=== PATIENT | female | born 1930 | race Asian ===

== ENCOUNTER 2018-07-09 12:38 | Outpatient (CLI) | payer MEDICARE, BC | END 2018-07-09 12:39 | disposition critical access hospital (66) | LOC: EMS 12:38 | PROVIDERS: ATTEND Surgery | DX: S09.93XA Unspecified injury of face, initial encounter (principal); R22.0 Localized swelling, mass and lump, head; W19.XXXA Unspecified fall, initial encounter; Y93.G1 Activity, food preparation and clean up; Y92.000 Kitchen of unspecified non-institutional (private) residence as the place of occurrence of the external cause | CPT/HCPCS: A0425; A0429 ==

== ENCOUNTER 2018-07-09 13:02 | Emergency (ER) | payer MEDICARE, BC ==
--- NOTE | 2018-07-09 13:40 | ED Physician Documentation ---
PD HPI Fall - Stated complaint Stated Complaint: GLF - Chief complaint Chief Complaint: Neuro - History obtained from History obtained from: Patient - History of Present Illness Mechanism of injury: Tripped (She says she just lost her footing as her shoe fell off and fell to the ground striking her left face and head. She said she had a little pain in her right hip and left arm but has good range of motion of those. Her daughters were with her and did not notice any loss of consciousness altered mentation or vomiting.) Fall distance: Standing position Where injury occurred: Home Timing - onset: Today Injury(ies) location: Head, Face (right cheek) Associated symptoms: No: LOC, AMS, Nausea / vomiting Worsens with: Palpation Contributing factors: No: Anticoagulated Similar symptoms before: Has not had sx before Recently seen: Not recently seen Review of Systems Constitutional: denies: Fever Ears: reports: Loss of hearing (chronic) Nose: denies: Rhinorrhea / runny nose, Congestion Throat: denies: Sore throat Respiratory: denies: Cough GI: denies: Vomiting, Diarrhea Skin: reports: Abrasion (s). denies: Laceration (s) Musculoskeletal: denies: Neck pain, Back pain Neurologic: denies: Focal weakness, Numbness PD PAST MEDICAL HISTORY - Past Medical History Cardiovascular: Hypertension Respiratory: None Endocrine/Autoimmune: None - Past Surgical History Past Surgical History: No - Present Medications Home Medications: Ambulatory Orders Medication Instructions Recorded Confirmed Aspirin [Aspir-Low] 1 tab PO DAILY 11/13/15 12/02/15 Metoprolol Succinate 1 tab PO BID 11/13/15 12/02/15 - Allergies Allergies/Adverse Reactions: Allergies Allergy/AdvReac Type Severity Reaction Status Date / Time No Known Drug Allergies Allergy Verified 07/09/18 13:39 - Social History Does the pt smoke?: No Smoking Status: Never smoker ETOH Use: Wine Does the pt have substance abuse?: No PD ED PE NORMAL - Vitals Vital signs reviewed: Yes - General General: Alert and oriented X 3, No acute distress, Well developed/nourished - HEENT HEENT: Pharynx benign, Dentition benign, Other (She has obvious swelling over the left cheek. She has good extraocular motions without any lag or diplopia. She has sensation present over the upper left lip and gumline. There is enough tenderness and swelling over the left zygoma that is hard to palpate the bone contour. There is an abrasion over the cheek but no laceration.) - Neck Neck: Supple, no meningeal sign, No bony TTP, No adenopathy - Cardiac Cardiac: RRR, No murmur - Respiratory Respiratory: Clear bilaterally, Other (No chest wall tenderness) - Abdomen Abdomen: Soft, Non tender - Derm Derm: Normal color, Warm and dry - Extremities Extremities: No deformity, Normal ROM s pain, Other (There is some mild tenderness over the left mid forearm. 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 There is little tenderness at the lateral right gluteal area but good range of motion of the hip joint.) - Neuro Neuro: Alert and oriented X 3, medical records manager 2-12 intact, No motor deficit, No sensory deficit Eye Opening: Spontaneous Motor: Obeys Commands Verbal: Oriented GCS Score: 15 Results - Vitals Vitals: Vital Signs - 24 hr 07/09/18 07/09/18 07/09/18 13:04 15:15 16:11 Temperature 37.2 C Heart Rate 86 91 95 Respiratory 15 25 H 19 Rate Blood Pressure 185/111 H 170/113 H 163/101 H O2 Saturation 100 98 07/09/18 18:24 Temperature 37.3 C Heart Rate 92 Respiratory 20 Rate Blood Pressure 173/108 H O2 Saturation 98 Oxygen O2 Source Room air - Labs Labs: Laboratory Tests 07/09/18 07/09/18 14:05 14:05 WBC 10.9 H RBC 3.54 L Hgb 11.5 L Hct 35.4 L MCV 100.0 H MCH 32.5 H MCHC 32.5 RDW 21.8 H Plt Count 285 MPV 8.0 Neut # (Auto) 9.2 H Lymph # (Auto) 1.0 L Winston # (Auto) 0.4 Eos # (Auto) 0.2 Baso # (Auto) 0.1 Absolute Nucleated RBC 0.02 Nucleated RBC % 0.2 Manual Slide Review Indicated WBC Morphology NORMAL APPEARANCE Platelet Estimate NORMAL (130-450,000) Platelet Morphology 1+ LARGE PLATELETS RBC Morph Micro Appear TARGET CELLS Sodium 132 L Potassium 3.2 L Chloride 96 L Carbon Dioxide 25 Anion Gap 11.0 BUN 19 Creatinine 0.9 Estimated GFR (MDRD) 59 L Glucose 104 H Calcium 8.5 Magnesium 2.0 Total Bilirubin 1.0 AST 20 ALT 14 Alkaline Phosphatase 52 Total Protein 6.7 Albumin 4.0 Globulin 2.7 Albumin/Globulin Ratio 1.5 Lipase 37 - Rads (name of study) fACIAL CT Radiology: Prelim report reviewed (There is a slightly depressed zygoma fracture. There is swelling of the face. There is fracture of the medial maxillary sinus wall. Orbit lateral wall buckle fracture.), See rad report head CT Radiology: Prelim report reviewed, Discussed with rads (There is a very small subdural at the left parietal frontal area measuring 6 mm in depth. No edema. No skull fracture.), See rad report repeat head CT at 4 hours Radiology: Prelim report reviewed (similar, slightly decreased size of bleeding. ), See rad report PD MEDICAL DECISION MAKING - ED course Complexity details: reviewed results (Facial fractures should be able to be followed up outpatient and we can refer to Dr. Hernandez. The head CT small subdural will need a consultation by neurosurgery. Likely they want a repeat imaging over several hours. She remains awake and alert and conversant with a normal neuro exam.), considered differential, d/w patient, d/w aerodynamic consultant (Neurosurgery at [facility], who suggested repeat CT at 3-4 hours and discharge home if unchanged.) Departure - Departure Disposition: 01 Home, Self Care Clinical Impression: Subdural hematoma Accidental fall Qualifiers: Encounter type: initial encounter Qualified Code(s): W19.XXXA - Unspecified fall, initial encounter Facial fracture due to fall Qualifiers: Encounter type: initial encounter Fracture type: closed Qualified Code(s): S02.92XA - Unspecified fracture of facial bones, initial encounter for closed fracture Condition: Stable Record reviewed to determine appropriate education?: Yes Instructions: ED Fx Face Follow-Up: Gustavo Hernandez DDS [Provider Admit Priv/Credential] - Comments: Sleep with your head elevated slightly to help reduce swelling. Ice or cool towels to the facial swelling periodically over the next couple days to reduce swelling. You could use some saline nasal spray into the nostril to help clear the blood from the sinuses. You will be having some blood when you blow your nose gently. Follow-up with Dr. Renee regarding the facial fractures. Call tomorrow for follow-up appointment likely will be next week after time for the swelling to go down. Tylenol or ibuprofen if needed for pains. The small area of bleeding in the brain as not any bigger and seems slightly smaller. This should not need any further follow-up. He will likely have some headache for several days. Discharge Date/Time: 07/09/18 18:42
[2018-07-09 14:14] LABS: BASOPHILS # (AUTO) 0.1 10^3/uL (0.0-0.1); EOSINOPHILS # (AUTO) 0.2 10^3/uL (0.0-0.7); EOSINOPHILS % (AUTO) 2.1 %; HGB - HEMOGLOBIN 11.5 g/dL (12.0-16.0); LYMPHOCYTES % (AUTO) 8.9 %; MEAN CORPUSCULAR HEMOGLOBIN 32.5 pg (27.0-31.0); MEAN CORPUSCULAR HGB CONC 32.5 g/dL (32.0-36.0); MONOCYTES # (AUTO) 0.4 10^3/uL (0.0-1.0); MONOCYTES % (AUTO) 3.6 %; NEUTROPHILS # (AUTO) 9.2 10^3/uL (1.5-6.6); NEUTROPHILS % (AUTO) 84.4 %; PLT - PLATELET COUNT 285 10^3/uL (130-450); RED BLOOD COUNT 3.54 10^6/uL (4.20-5.40); RED CELL DISTRIBUTION WIDTH 21.8 % (12.0-15.0); WHITE BLOOD COUNT 10.9 x10^3/uL (4.8-10.8)
[2018-07-09 14:24] LABS: ALBUMIN/GLOBULIN RATIO 1.5 (1.0-2.2); CALCIUM 8.5 mg/dL (8.5-10.3); CREATININE 0.9 mg/dL (0.4-1.0); TOTAL PROTEIN 6.7 g/dL (6.7-8.2)
[2018-07-09 14:37] LABS: PLATELET ESTIMATE, MANUAL NORMAL (130-450,000) (NORMAL); PLATELET MORPHOLOGY 1+ LARGE PLATELETS (NORMAL)
--- NOTE | 2018-07-09 15:20 | CT Report ---
Reason: accidental fall, struck left face/head Procedure Date: 07/09/2018 Accession Number: [id number] / [id number] Procedure: CT - HEAD WO CPT Code: FULL RESULT: EXAM: CT HEAD EXAM DATE: 07/09/2018 02:21 PM. CLINICAL HISTORY: 87-year-old female. Accidental fall, struck left face/head. COMPARISON: CT maxillofacial obtained concurrently TECHNIQUE: Multiaxial CT images were obtained from the foramen magnum to the vertex. Reformats: Sagittal and coronal. IV contrast: None. In accordance with CT protocol optimization, one or more of the following dose reduction techniques were utilized for this exam: automated exposure control, adjustment of mA and/or KV based on patient size, or use of iterative reconstructive technique. FINDINGS: Parenchyma: No intraparenchymal hemorrhage. No evidence of mass, midline shift, or CT findings of acute infarction. Mercado-white differentiation is distinct. Diffuse chronic microangiopathic white matter changes are evident. Extraaxial Spaces: Acute lateral left frontal extra-axial, likely subdural, hemorrhage measuring 6 mm in maximal thickness (series 2 image 25) Ventricles: The ventricles and cortical sulci are enlarged, consistent with age-related tissue loss. Sinuses and orbits: Please see the separately dictated CT maxillofacial performed concurrently regarding facial fractures. The left maxillary sinus is blood filled. There is a minimally displaced fracture involving the lateral wall of the left maxillary sinus. Comminuted fracture of the left zygomatic arch. The remaining paranasal sinuses are clear. The mastoid air cells are clear Bones: No evidence of fracture or calvarial defect. Other: Moderate atherosclerosis intracranial arteries. IMPRESSION: 1. Acute lateral left frontal extra-axial, likely subdural, hemorrhage measuring 6 mm in maximal thickness (series 2 image 25) 2. Please see the separately dictated CT maxillofacial performed concurrently regarding facial fractures. The left maxillary sinus is blood filled. There is a minimally displaced fracture involving the lateral wall of the left maxillary sinus. 3. Comminuted fracture of the left zygomatic arch. RADIA The critical result notification system was initiated by Dr. Eric Patton at 03:16 PM on 07/09/2018. ADDENDUM: 07/09/18 15:20 Large soft tissue hematoma along the lateral left face/cheek. The above critical result findings were discussed with Frederick Benitez by Dr. Eric Patton at 03:20 PM on 07/09/2018.
--- NOTE | 2018-07-09 15:32 | CT Report ---
Reason: accidental fall and struck left face/head Procedure Date: 07/09/2018 Accession Number: [id number] / [id number] Procedure: CT - MAXILLOFACIAL WO CPT Code: FULL RESULT: EXAM: CT MAXILLOFACIAL WITHOUT CONTRAST. EXAM DATE: 07/09/2018 02:21 PM. CLINICAL HISTORY: Accidental fall and struck left face/head. COMPARISONS: None. TECHNIQUE: Thin-section axial images were acquired of the face without contrast. Post-processing: Coronal and sagittal reformats. Other: None. In accordance with CT protocol optimization, one or more of the following dose reduction techniques were utilized for this exam: automated exposure control, adjustment of mA and/or KV based on patient size, or use of iterative reconstructive technique. FINDINGS: Soft Tissue: There is soft tissue swelling/hematoma of the left face overlying the zygomatic arch and left cheek. Orbits: No soft tissue abnormalities of the intraorbital contents. Bones: Multiple left facial fractures: 1. Displaced fracture of the mid left zygomatic arch. 2. Buckle fracture of the lateral orbital wall. 3. Fracture of the inferior orbital wall around the course of the infraorbital nerve; with extension of buckle type fractures of the lateral anterior and superior maxillary sinus yoon. Temporomandibular Joints: The patient is edentulous. In the relaxed position, the temporal mandibular joints are in open mouth position but are symmetric. No evidence of TMJ fracture. Sinuses: Subtotal opacification with air-fluid level of the left maxillary sinus consistent with products of hemorrhage. Remaining paranasal sinuses are clear. Other: None. IMPRESSION: Acute left facial fractures as described involving the zygomatic arch, inferior and lateral orbital yoon and left maxillary sinus. RADIA
--- NOTE | 2018-07-09 18:05 | CT Report ---
Reason: repeat scan, recheck subdural Procedure Date: 07/09/2018 Accession Number: [id number] / [id number] Procedure: CT - HEAD WO CPT Code: FULL RESULT: EXAM: CT HEAD WITHOUT CONTRAST EXAM DATE: 07/09/2018 05:42 PM. CLINICAL HISTORY: Repeat scan, recheck subdural. COMPARISON: FACIAL BONES W/O 07/09/2018 2:12 PM. HEAD W/O 07/09/2018 2:12 PM. TECHNIQUE: Multiaxial CT images were obtained from the foramen magnum to the vertex. Reformats: Sagittal and coronal. IV contrast: None. In accordance with CT protocol optimization, one or more of the following dose reduction techniques were utilized for this exam: automated exposure control, adjustment of mA and/or KV based on patient size, or use of iterative reconstructive technique. FINDINGS: Parenchyma: Generalized age appropriate moderate cerebral and cerebellar atrophy. No intraparenchymal hemorrhage. No evidence of mass, midline shift, or CT findings of acute infarction. Mercado-white differentiation is distinct. Diffuse moderate chronic microangiopathic white matter changes are evident. Extraaxial Spaces: Small lateral frontal extra-axial hematoma on scan 3-25, 4 mm in transverse diameter, decreased from 6 mm previously. No additional areas of hemorrhage. Extra-axial spaces otherwise normal. Ventricles: The ventricles and cortical sulci are mildly enlarged, consistent with age-related tissue loss. Sinuses and orbits: Fluid-filled left maxillary sinus, increased since prior exam. Nondisplaced fracture lateral aspect left maxillary sinus with small amount of air within the region, decreased in prominence from prior exam. Comminuted fracture left zygomatic arch again noted, stable. Remaining paranasal sinuses are clear. Bones: Fractures as discussed above. No additional fractures. Other: None. IMPRESSION: Small left frontal lateral extra-axial hematoma, slightly decreased in size from earlier study of today. Increased amount of blood within the left maxillary sinus compared with earlier study. Associated fractures as described previously. No new abnormalities. RADIA
[2018-07-09] MEDS ORDERED: ACETAMINOPHEN 325 MG TABLET PO STA (18:11)
[2018-07-09] MEDS ORDERED: NAPROXEN 250 MG TABLET PO STA (18:11)
[2018-07-09 18:42] VITALS: BP 173/108
== END 2018-07-09 18:42 | disposition home or self-care (01) ==
LOC: EDUNIT# → ED 13:02
DX: S06.5X0A Traumatic subdural hemorrhage without loss of consciousness, initial encounter (principal); S02.40FA Zygomatic fracture, left side, initial encounter for closed fracture; S02.80XA Fracture of other specified skull and facial bones, unspecified side, initial encounter for closed fracture; S02.401A Maxillary fracture, unspecified side, initial encounter for closed fracture; W01.190A Fall on same level from slipping, tripping and stumbling with subsequent striking against furniture, initial encounter; Y93.01 Activity, walking, marching and hiking; Y92.009 Unspecified place in unspecified non-institutional (private) residence as the place of occurrence of the external cause; I10 Essential (primary) hypertension
CPT/HCPCS: 36415; 70450; 70486; 80053; 83690; 83735; 85025; 99283; 99284; A9270

== ENCOUNTER 2018-07-18 12:07 | Day surgery (SDC) | payer MEDICARE, BC ==
[2018-07-18] MEDS ORDERED: ROCURONIUM 50 MG/5 ML VIAL IVP ONE (12:08)
[2018-07-18] MEDS ORDERED: ePHEDrine 50 MG/ML VIAL IVP ONE (12:08)
[2018-07-18] MEDS ORDERED: MIDAZOLAM 2 MG/2 ML VIAL IVP ONE (12:08)
[2018-07-18] MEDS ORDERED: DEXAMETHASONE 4 MG/ML VIAL IVP ONE (12:08)
[2018-07-18] MEDS ORDERED: LIDOCAINE-MPF 2% 5 ML VIAL IM ONE (12:08)
[2018-07-18] MEDS ORDERED: METOPROLOL 5 MG/5 ML VIAL IVP ONE (12:08)
[2018-07-18] MEDS ORDERED: ACETAMINOPHEN 1,000 MG/100 ML 100 ML IV ONE (12:08)
[2018-07-18] MEDS ORDERED: PROPOFOL 200 MG/20 ML VIAL IVP ONE (12:08)
[2018-07-18] MEDS ORDERED: ONDANSETRON 4 MG/2 ML VIAL IVP ONE (12:08)
[2018-07-18] MEDS ORDERED: fentaNYL 100 MCG/2 ML VIAL IVP ONE (12:08)
--- NOTE | 2018-07-18 12:26 | ANESTHESIA ---
Pre-Anesthesia VS, & Labs - Diagnosis Left open Malar fracture, left open Zygomatic fracture - Procedure Open treatment of complicated fractures of malar area including zygomatic arch and malar tripod with graft, Left Vital Signs: 149/86, 97%, HR 80, T 37 Height 5 ft Body Mass Index 17.6 - NPO >8 hours - Is Patient ?: No - Lab Results Fish Bones: 07/18/18 12:48 07/18/18 12:48 Home Medications and Allergies Home Medications: Ambulatory Orders Multivitamin [Daily Multiple Vitamin] 1 each PO DAILY 07/17/18 Aspirin [Aspir-Low] 1 tab PO DAILY 11/13/15 Metoprolol Succinate 1 tab PO BID 11/13/15 Multivitamin [Daily Multiple Vitamin] 1 each PO DAILY 07/17/18 Allergies/Adverse Reactions: Allergies Allergy/AdvReac Type Severity Reaction Status Date / Time No Known Drug Allergies Allergy Verified 07/09/18 13:39 Anes History & Medical History - Anesthetic History Anesthesia Complications: reports: No previous complications - Medical History Cardiovascular: reports: Hypertension Pulmonary: reports: Shortness of breath Gastrointestinal: reports: None Urinary: reports: Incontinence Neuro: reports: Head injury (facial fractures), Other (hard of hearing) Musculoskeletal: reports: Osteoarthritis, Other Endocrine/Autoimmune: reports: None Skin: reports: None Smoking Status: Never smoker - Surgical History General: Colonoscopy Eyes Ears Nose Throat (EENT): Cataracts Gynecologic: Hysterectomy Exam General: Alert Dental: Dentures full Upper, Dentures full Lower Mouth Opening: Greater than 4 Fingerbreadths Mallampati classification: II Thyromental Distance: greater than 6 cm Respiratory: Lungs clear Cardiovascular: Regular rate, Normal S1, Normal S2 Plan Anesthesia Type: General Consent for Procedure(s) Verified and Reviewed: Yes Code Status: Attempt Resuscitation ASA classification: 2-Mild systemic disease Is this case an emergency?: No
[2018-07-18] MEDS ORDERED: LACTATED RINGERS 1,000 ML IV ONE ×2 (12:35→16:07)
[2018-07-18 12:59] LABS: BASOPHILS % (AUTO) 0.4 %; EOSINOPHILS # (AUTO) 0.1 10^3/uL (0.0-0.7); EOSINOPHILS % (AUTO) 1.6 %; LYMPHOCYTES # (AUTO) 1.5 10^3/uL (1.5-3.5); LYMPHOCYTES % (AUTO) 17.7 %; MEAN CORPUSCULAR HEMOGLOBIN 32.8 pg (27.0-31.0); MEAN CORPUSCULAR VOLUME 99.4 fL (81.0-99.0); MEAN PLATELET VOLUME 8.2 fL (7.9-10.8); MONOCYTES # (AUTO) 0.6 10^3/uL (0.0-1.0); MONOCYTES % (AUTO) 6.9 %; NEUTROPHILS # (AUTO) 6.3 10^3/uL (1.5-6.6); NEUTROPHILS % (AUTO) 73.4 %; PLT - PLATELET COUNT 430 10^3/uL (130-450); RED BLOOD COUNT 3.34 10^6/uL (4.20-5.40); WHITE BLOOD COUNT 8.5 x10^3/uL (4.8-10.8)
[2018-07-18] MEDS ORDERED: OXYMETAZOLINE HCL 100 SPRAYS BOTTLE NAS ONE (12:59)
[2018-07-18] MEDS ORDERED: CHLORHEXIDINE GLUCONATE 15 ML UDC PO ONE ×2 (12:59→14:17)
[2018-07-18] MEDS ORDERED: ceFAZolin 2 GM in SODIUM CHLORIDE 0.9% 100ML 100 ML IV SCH (13:00)
[2018-07-18 13:05] LABS: CALCIUM 8.8 mg/dL (8.5-10.3); CREATININE 0.7 mg/dL (0.4-1.0)
--- NOTE | 2018-07-18 13:28 | XRAY Report ---
Reason: preop order Procedure Date: 07/18/2018 Accession Number: [id number] / [id number] Procedure: XR - Chest 1 View X-Ray CPT Code: 79628 FULL RESULT: EXAM: CHEST RADIOGRAPHY EXAM DATE: 07/18/2018 12:45 PM. CLINICAL HISTORY: Preoperative evaluation. COMPARISON: CHEST 2 VIEW PA/LAT 12/02/2015 2:42 PM. TECHNIQUE: 1 view. FINDINGS: The heart is mildly enlarged, which is not significantly changed from the prior exam. Calcified plaques in the thoracic aorta. No consolidation, pleural effusion, or pneumothorax visualized. The bones are osteopenic. Biphasic scoliosis of the thoracic spine. Moderate to severe degenerative changes of the glenohumeral joints bilaterally. IMPRESSION: Mild cardiomegaly, which is similar to the prior exam from 2016. No acute cardiopulmonary findings. RADIA
[2018-07-18] MEDS ORDERED: LIDOCAINE 2%-EPI 1:100000 20 ML MDV MC ONE (14:00)
[2018-07-18] MEDS ORDERED: LIDOCAINE 2%-EPI 1:100000 20 ML MDV SUBQ ONE ×3 (14:18)
[2018-07-18] MEDS ORDERED: OXYMETAZOLINE NASAL SPRAY NAS ONE (14:19)
[2018-07-18] MEDS ORDERED: HYDROcod/ACETAM 5/325 MG TABLET PO PRN (15:22)
[2018-07-18] MEDS ORDERED: ONDANSETRON 4 MG/2 ML VIAL IVP PRN (15:22)
[2018-07-18 16:49] VITALS: BP 157/89
--- NOTE | 2018-07-18 17:48 | OPERATIVE REPORT ---
DATE OF SERVICE: 07/18/2018 Physician: Gustavo Hernandez DDS PREOPERATIVE DIAGNOSIS: Comminuted left zygomaticomaxillary complex fracture. POSTOPERATIVE DIAGNOSIS: Comminuted left zygomaticomaxillary complex fracture. PROCEDURE PERFORMED: Open reduction and internal fixation of the left zygomaticomaxillary complex via intraoral and extraoral approaches. PRIMARY SURGEON: Gustavo Hernandez DDS ANESTHESIOLOGIST: Melia Burns CRNA ANESTHESIA TYPE: General anesthesia via oral endotracheal intubation. LOCATION OF PROCEDURE: [facility] operating room. COMPLICATIONS: None. DRAINS/PACKS/CATHETERS: None. IMPLANTS: All [employer]omet implants were used. Left lateral orbital rim: 4-hole plate with a gap was placed, as well as 4 bone screws. Left intraoral incision, in the buttress area a long multiple hole plate was placed with 5 bone screws. ESTIMATED BLOOD LOSS: Less than 10 mL INTRAVENOUS FLUIDS GIVEN: Per anesthesia records. INDICATIONS FOR PROCEDURE: Patient is an 87-year-old female who stumbled in her house about a week ago, fell and struck the left side of her face. She sustained a complex fracture of the left ZMC, as well as a small subdural hematoma. She was monitored for a week and had no signs of headache, seizures or any other sequela of the subdural hematoma. She was also evaluated clinically and found to have a moderately displaced, rolled in ZMC fracture. It was decided that repair of this fracture was necessary. 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 We had to write most everything down for her to understand. It was a prolonged consultation, but we did thoroughly discuss all the risks, benefits and alternatives, including pain, swelling, bleeding, infection, poor cosmesis scarring, need for further surgery, vision changes, vision loss, change in her occlusion, loss of teeth, inability to wear a denture. Adequate time was given to answer all questions and informed consent was obtained. DESCRIPTION OF PROCEDURE: Patient was brought to the main operating room and placed in a supine position on the operating table. General anesthesia was induced by the anesthesia team, and the airway was secured with an oral endotracheal tube, taped off to the right side of the mouth. The pressure points were padded and checked. A corneal shield was placed in the left eye. Patient was prepped and draped in the standard sterile fashion for an intraoral and extraoral surgical procedure. A formal timeout was executed. Local anesthesia was achieved with 2% lidocaine with 1:100,000 epinephrine x6 mL. Attention was directed intraorally. A throat pack was placed. The mouth was rinsed with chlorhexidine. Attention was directed to the left brow and lateral rim. A 1 cm incision was made with a #15 blade and then electrocautery was used to incise down to bone. The fracture was easily identified. Hemostasis was achieved with electrocautery. Attention was directed intraorally. Stensen's duct was identified, retracted and protected on the left. An incision was made from the first molar to the midline on the left maxilla in the vestibule, leaving a cuff of soft tissue for closure. The incision was carried down to bone and it was made with electrocautery. Hemostasis was achieved with electrocautery. Subperiosteal dissection was performed with a #9. The fracture was easily identified. The zygomatic buttress was exposed, but all the bone in between the zygomatic buttress and the alveolar bone was very, very poor quality and extremely thin. The only placed with stable bone was the piriform area, and this was exposed and anticipated to be used for stabilization of the fracture once it was reduced. A urethral sound was introduced deep to the fracture and lifted outwards and slightly up. The fracture reduced very nicely. It could seemed to be well reduced in the lateral brow area, as well as intraorally. The urethral sound was delicately slid anteroposteriorly along the zygomatic arch to confirm by palpation of this area that the zygomatic arch was reduced. The fracture held in place very nicely, and attention was directed back to the lateral brow. A 4-hole plate with 4 bone screws was used to stabilize the left lateral brow fracture. Attention was directed back into the mouth. A very long plate was used to span the gap of inadequate bone, and plate with 3 screws on the zygomatic buttress and 2 screws in the piriform area. All 5 of these screws were secure, and the fracture was held out nicely. A area to plate of was sought, but was not found. Initially, we wanted to plate more posterior down on the buttress, but there unfortunately was no area where a plate could be placed without involving the alveolar bone. Another area was sought at the inferior orbital rim, but on further review of the CT scan this area was not adequately fractured to justify an incision and plating. Thus, it was decided to finish this case with these 2 plates. Both surgical areas were irrigated copiously. The lateral brow incision was closed with 4-0 Vicryl sutures for the deep and with 5-0 Prolene superficial sutures. The intraoral incision was closed with 4- 0 chromic gut suture. The mouth was rinsed free of debris. The oropharynx was suctioned. The throat pack was removed. Care of patient was returned to the anesthesia team. Patient was emerged uneventfully from anesthesia. She was extubated and transferred to the PACU in stable condition. TD: 07/18/2018 16:00 YVETTE
== END 2018-07-18 12:08 | disposition home or self-care (01) ==
LOC: SDS 12:07
PROVIDERS: ATTEND Dentist Oral and Maxillofacial Surgery
PROC: 0NSR04Z Reposition Maxilla with Internal Fixation Device, Open Approach (ICD-10-PCS; 2018-07-18)
PROC: 0NSQ04Z Reposition Left Orbit with Internal Fixation Device, Open Approach (ICD-10-PCS; 2018-07-18)
PROC: 0NSN04Z Reposition Left Zygomatic Bone with Internal Fixation Device, Open Approach (ICD-10-PCS; principal; 2018-07-18 13:30)
DX: S02.40FB Zygomatic fracture, left side, initial encounter for open fracture (principal); S02.40B Malar fracture, left side; S06.5X0A Traumatic subdural hemorrhage without loss of consciousness, initial encounter; W01.190A Fall on same level from slipping, tripping and stumbling with subsequent striking against furniture, initial encounter; I10 Essential (primary) hypertension; M25.551 Pain in right hip
CPT/HCPCS: 21365; 36415; 71045; 80048; 85025; 93005; A9270; J0131; J7120

== ENCOUNTER 2019-04-25 12:41 | Outpatient (CLI) | payer MEDICARE, BC | END 2019-04-25 12:42 | disposition critical access hospital (66) | LOC: EMS 12:41 | PROVIDERS: ATTEND Surgery | DX: R42 Dizziness and giddiness (principal); M79.602 Pain in left arm; W18.39XA Other fall on same level, initial encounter; Y92.030 Kitchen in apartment as the place of occurrence of the external cause | CPT/HCPCS: A0425; A0427 ==

== ENCOUNTER 2019-04-25 13:02 | Emergency (ER) | payer MEDICARE, BC ==
[2019-04-25] MEDS ORDERED: ACETAMINOPHEN 325 MG TABLET PO STA (13:14)
--- NOTE | 2019-04-25 13:19 | ED Physician Documentation ---
PD HPI FOCAL NEURO - Stated complaint Stated Complaint: FALL - Chief complaint Chief Complaint: Neuro - History obtained from History obtained from: Patient, Family, EMS - History of Present Illness Timing - onset: Today (This is a chapo 88-year-old [place] woman with history of hypertension and frequent falls. Most of the history is from the patient but somewhat limited because she is incredibly hard of hearing so I have to write notes to her which she responds to an normal overall verbal fashion. Per her and the daughter basically she is always somewhat dizzy. She supposed to be using a walker but is not always compliant. Today because of 1 of these dizzy episodes she fell and injured her left arm. She complains about the shoulder but the wrist actually seems more deformed and tender than the humerus or shoulder. She denies hitting her head. No other injuries. She does complain of chronic right hip pain and joint pain as well. It is unclear if she walked since the fall. She denies headache. When asked her if she is currently dizzy she says "a little." Because of the communication difficulties it is difficult to ascertain the specifics of the type of dizziness she has. It sounds more like a disequilibrium than it does a vertigo or presyncope.) Review of Systems Ten Systems: 10 systems reviewed and negative Constitutional: denies: Fever, Chills Cardiac: denies: Chest pain / pressure, Palpitations Respiratory: denies: Dyspnea, Cough GI: denies: Abdominal Pain, Nausea, Vomiting PD PAST MEDICAL HISTORY - Past Medical History Cardiovascular: Hypertension Respiratory: Shortness of breath Neuro: Head injury (facial fractures), Other (hard of hearing) Endocrine/Autoimmune: None GI: None : Incontinence HEENT: Chronic hearing loss Psych: None Musculoskeletal: Osteoarthritis, Other Derm: None - Past Surgical History Past Surgical History: No 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 HEENT: Cataracts - Present Medications Home Medications: Ambulatory Orders Medication Instructions Recorded Confirmed Aspirin [Aspir-Low] 1 tab PO DAILY 11/13/15 04/25/19 Metoprolol Succinate 1 tab PO BID 11/13/15 04/25/19 Multivitamin [Daily Multiple 1 each PO DAILY 07/17/18 04/25/19 Vitamin] dilTIAZem HCl [Diltiazem 24Hr ER 240 mg PO DAILY 04/25/19 04/25/19 (Cd)] - Allergies Allergies/Adverse Reactions: Allergies Allergy/AdvReac Type Severity Reaction Status Date / Time No Known Drug Allergies Allergy Verified 04/25/19 13:05 - Social History Does the pt smoke?: No Smoking Status: Never smoker Does the pt have substance abuse?: No PD ED PE NORMAL - Vitals Vital signs reviewed: Yes - General General: Alert and oriented X 3, No acute distress - HEENT HEENT: PERRL, EOMI - Neck Neck: Supple, no meningeal sign, No bony TTP - Cardiac Cardiac: RRR, No murmur - Respiratory Respiratory: No respiratory distress, Clear bilaterally - Abdomen Abdomen: Normal bowel sounds, Soft, Non tender - Back Back: No CVA TTP, No spinal TTP - Derm Derm: Normal color, Warm and dry - Extremities Extremities: Other (She has a deformity of the left wrist with crepitance consistent with a fracture. The shoulder and humerus itself are nontender on the left. Normal neurovascular function left hand. The remainder of her ex tremities are ranged and palpated without tenderness.) - Neuro Neuro: Alert and oriented X 3, bottom buffer 2-12 intact, No motor deficit, No sensory deficit, Normal speech Eye Opening: Spontaneous Motor: Obeys Commands Verbal: Oriented GCS Score: 15 - Psych Psych: Normal mood, Normal affect Results - Vitals Vitals: Vital Signs - 24 hr 04/25/19 13:05 Temperature 36.2 C L Heart Rate 70 Respiratory 18 Rate Blood Pressure 173/90 H O2 Saturation 98 Oxygen O2 Source Room air - EKG (time done) 1322 Rate: Rate (enter#) (66) Rhythm: NSR [place]: Normal Intervals: Prolonged NC QRS: LVH Ischemia: Non specific changes. No: ST elevation c/w ischemia, ST depression Computer interpretation: Agree with computer - Labs Labs: Laboratory Tests 04/25/19 04/25/19 04/25/19 13:25 13:36 13:36 WBC 6.5 RBC 3.30 L Hgb 11.2 L Hct 33.5 L MCV 101.5 H MCH 33.9 H MCHC 33.4 RDW 19.8 H Plt Count 292 MPV 11.1 H Neut # (Auto) 3.8 Lymph # (Auto) 1.8 Frio # (Auto) 0.5 Eos # (Auto) 0.3 Baso # (Auto) 0.0 Absolute Nucleated RBC 0.09 Nucleated RBC % 1.4 Sodium 130 L Potassium 3.6 Chloride 96 L Carbon Dioxide 23 Anion Gap 11.0 BUN 18 Creatinine 1.2 H Estimated GFR (MDRD) 42 L Glucose 112 H Calcium 8.5 Total Bilirubin 1.0 AST 18 ALT 14 Alkaline Phosphatase 74 Troponin I High Sens 7.7 Total Protein 7.0 Albumin 4.1 Globulin 2.9 Albumin/Globulin Ratio 1.4 Lipase 41 - Rads (name of study) L humerus XR Radiology: EMP read contemporaneously (neg) L wrist XR Radiology: EMP read contemporaneously (Comminuted distal radial intra-articular fragments fracture with dorsal offset and a small bony fracture of the ulnar styloid) Ct Head Radiology: EMP read contemporaneously (New hyperdense parenchymal hemorrhage measuring 9 x 9 mm in the left sudha) Procedures - Splint (location) L wrist Splint applied by: Tech Type of splint: Fiberglass, Short arm, Volar cock up Other: Patient tolerated well, No complications, Neurovascular intact PD MEDICAL DECISION MAKING - ED course ED course: 88-year-old woman presents with an acute on chronic disequilibrium that is worse and now caused a fall today. She injured her left arm, she was complaining more of the shoulder than the wrist but the wrist was clearly deformed. The shoulder/humerus x-ray was negative but she does have a distal radial articular fracture which was splinted. Because of the worsening disequilibrium and head CT was done and shows a nontraumatic left pontine hemorrhage which is likely the root cause of her fall today. After discussion with family they wanted her transferred to [facility] [place] for neurologic care. They were unfortunately full and subsequently the family requested [facility] and they were called. Her blood pressure was generally below 160 systolic and given her underlying hypertension he did not feel that she needed further antihypertension control. She was accepted to [facility] by Dr. Nair, stroke neurology at 2:39 PM. [place] were completed. She is stable for transport for higher level of care given a small hemorrhagic stroke. Departure - Departure Disposition: 02 Transfer Acute Care Hosp Clinical Impression: Brainstem hemorrhage, nontraumatic Accidental fall Qualifiers: Encounter type: initial encounter Qualified Code(s): W19.XXXA - Unspecified fall, initial encounter Wrist fracture, left Qualifiers: Encounter type: initial encounter Fracture type: closed Qualified Code(s): S62.102A - Fracture of unspecified carpal bone, left wrist, initial encounter for closed fracture Condition: Serious
[2019-04-25 13:28] LABS: BASOPHILS % (AUTO) 0.3 %; EOSINOPHILS # (AUTO) 0.3 10^3/uL (0.0-0.7); HGB - HEMOGLOBIN 11.2 g/dL (12.0-16.0); LYMPHOCYTES # (AUTO) 1.8 10^3/uL (1.5-3.5); LYMPHOCYTES % (AUTO) 27.4 %; MEAN CORPUSCULAR HEMOGLOBIN 33.9 pg (27.0-31.0); MEAN CORPUSCULAR HGB CONC 33.4 g/dL (32.0-36.0); MEAN CORPUSCULAR VOLUME 101.5 fL (81.0-99.0); MEAN PLATELET VOLUME 11.1 fL (7.9-10.8); MONOCYTES # (AUTO) 0.5 10^3/uL (0.0-1.0); MONOCYTES % (AUTO) 7.8 %; NEUTROPHILS # (AUTO) 3.8 10^3/uL (1.5-6.6); NEUTROPHILS % (AUTO) 58.5 %; PLT - PLATELET COUNT 292 10^3/uL (130-450); RED CELL DISTRIBUTION WIDTH 19.8 % (12.0-15.0); WHITE BLOOD COUNT 6.5 x10^3/uL (4.8-10.8)
[2019-04-25 13:53] LABS: ALBUMIN 4.1 g/dL (3.2-5.5); ALBUMIN/GLOBULIN RATIO 1.4 (1.0-2.2); CALCIUM 8.5 mg/dL (8.5-10.3); CREATININE 1.2 mg/dL (0.4-1.0)
--- NOTE | 2019-04-25 14:09 | XRAY Report ---
Reason: shoulder inj Procedure Date: 04/25/2019 Accession Number: [id number] / [id number] Procedure: XR - Humerus LT CPT Code: Final Report FULL RESULT: EXAM: LEFT HUMERUS RADIOGRAPHY EXAM DATE: 04/25/2019 01:53 PM. CLINICAL HISTORY: Shoulder inj. COMPARISON: WRIST 3 VIEW LT 04/25/2019 1:46 PM. TECHNIQUE: 2 views. FINDINGS: Bones: Normal. No fractures or bone lesions. Joints: Severe degenerative changes in the left shoulder with multiple loose bodies. Sclerosis of the humeral head. Chronic rotator cuff tear. AVN not excluded Elbow joint may have calcific tendinitis. Soft Tissues: Normal. No soft tissue swelling. IMPRESSION: No acute fracture RADIA
--- NOTE | 2019-04-25 14:10 | XRAY Report ---
Reason: wrist inj Procedure Date: 04/25/2019 Accession Number: [id number] / [id number] Procedure: XR - Wrist 3 View LT CPT Code: Final Report FULL RESULT: EXAM: LEFT WRIST RADIOGRAPHY EXAM DATE: 04/25/2019 01:53 PM. CLINICAL HISTORY: Wrist inj. pain and swelling COMPARISON: None. TECHNIQUE: 3 views. FINDINGS: Bones: Comminuted distal radial intra-articular fracture with dorsal offset of the distal fragment and medial lateral set. Small calcification adjacent ulnar styloid. Joints: Normal. No subluxations. Soft Tissues: soft tissue swelling. IMPRESSION: 1. Comminuted distal radial intra-articular fracture with dorsal offset. 2. Small bony fragment adjacent ulnar styloid. RADIA
--- NOTE | 2019-04-25 14:17 | CT Report ---
Reason: dizzy, fall Procedure Date: 04/25/2019 Accession Number: [id number] / [id number] Procedure: CT - HEAD WO CPT Code: Addended Final Report FULL RESULT: EXAM: CT HEAD EXAM DATE: 04/25/2019 02:03 PM. CLINICAL HISTORY: Dizzy, fall. COMPARISON: HEAD W/O 07/09/2018 5:41 PM. TECHNIQUE: Multiaxial CT images were obtained from the foramen magnum to the vertex. Reformats: Sagittal and coronal. IV contrast: None. In accordance with CT protocol optimization, one or more of the following dose reduction techniques were utilized for this exam: automated exposure control, adjustment of mA and/or KV based on patient size, or use of iterative reconstructive technique. FINDINGS: Parenchyma: There is around new hyperdense lesion in the left sudha measuring 9 x 9 mm. There is no midline shift or herniation. There is a moderate degree of non-focal periventricular white matter hypodensity. Extraaxial Spaces: No abnormal subdural or epidural fluid collection. Ventricles: The ventricles appear normal in size. Sinuses and Orbits: Imaged paranasal sinuses, orbits, and mastoids show no significant abnormality. Bones: No evidence of fracture or calvarial defect. Other: None. IMPRESSION: 1. New hyperdense lesion in the left sudha suspicious for parenchymal hemorrhage measuring 9 x 9 mm. 2. 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 Unchanged. RADIA The critical result notification system was initiated by Dr. Bernabe Cazares at 02:15 PM on 04/25/2019. ADDENDUM: 04/25/19 14:18 The above critical result findings were discussed with Jersey Perea by Dr. Bernabe Cazares at 02:18 PM on 04/25/2019.
[2019-04-25 15:19] VITALS: BP 147/75
== END 2019-04-25 15:27 | disposition short-term general hospital (02) ==
LOC: EDUNIT# → ED 13:02
DX: I61.3 Nontraumatic intracerebral hemorrhage in brain stem (principal); S52.572A Other intraarticular fracture of lower end of left radius, initial encounter for closed fracture; W18.30XA Fall on same level, unspecified, initial encounter; I10 Essential (primary) hypertension; Z91.81 History of falling
CPT/HCPCS: 29125; 36415; 70450; 73060; 73110; 80053; 83690; 84484; 85025; 93005; 99285; A9270

== ENCOUNTER 2019-04-25 15:28 | Outpatient (CLI) | payer MEDICARE, BC | END 2019-04-25 23:59 | disposition short-term general hospital (02) | LOC: EMS 15:28 | PROVIDERS: ATTEND Surgery | DX: I62.9 Nontraumatic intracranial hemorrhage, unspecified (principal); S52.92XA Unspecified fracture of left forearm, initial encounter for closed fracture; W19.XXXA Unspecified fall, initial encounter | CPT/HCPCS: A0425; A0426 ==

== ENCOUNTER 2019-12-16 13:13 | Outpatient (CLI) | payer MEDICARE, BC ==
--- NOTE | 2019-12-16 14:49 | XRAY Report ---
PROCEDURE: SI Joints INDICATIONS: PAIN RT ISCHIAL SPINE,UNABLE TO BEAR WT.NO FALL TECHNIQUE: 3 views of the sacroiliac joints were acquired. COMPARISON: X-ray lumbar spine 12/16/2019 FINDINGS: Bones: SI joints are poorly visualized secondary to overlying vascular calcifications. There appears to be bilateral narrowing without complete fusion. Moderate bilateral hip joint degenerative narrowin g. No suspicious bony lesions. No fractures. Soft tissues: Overlying bowel gas pattern is normal. No suspicious soft tissue densities. Prominen t vascular calcifications are present. IMPRESSION: Degenerative changes within the lumbar spine and lower hips as well as mild narrowing of the SI joint s as above. Reviewed by: Ashley Dick MD on 12/16/2019 2:48 PM PDT Approved by: Ashley Dick MD on 12/16/2019 2:48 PM PDT Station ID: [id number]
--- NOTE | 2019-12-16 14:53 | XRAY Report ---
PROCEDURE: Lumbar Spine 2 View INDICATIONS: PAIN RT ISCHIAL SPINE,UNABLE TO BEAR WT.NO FALL TECHNIQUE: 2 views of the lumbar spine were acquired. COMPARISON: None. FINDINGS: Bones: 5 [id number] vertebrae are present. There is prominent rightward scoliotic curvature wi th apex at L3. Compression deformities are present from T11 through L2 of indeterminate age. However, partially visualized areas from chest x-ray of 2016 demonstrate compression deformities present with in this region. Multilevel moderate disc space narrowing is present throughout the lumbar spine. Patricia re foraminal narrowing is present at L2-3, L4-5, moderate to severe L5-S1. No suspicious bony lesions . Soft tissues: Overlying bowel gas pattern is normal. No suspicious soft tissue calcifications. Pro minent vascular calcifications are noted. IMPRESSION: Multilevel degenerative changes as well as compression deformities above. Reviewed by: Ashley Dick MD on 12/16/2019 2:52 PM PDT Approved by: Ashley Dick MD on 12/16/2019 2:52 PM PDT Station ID: [id number]
--- NOTE | 2019-12-16 14:54 | XRAY Report ---
PROCEDURE: Hip w/Pelvis 2-3V RT INDICATIONS: PAIN RT ISCHIAL SPINE,UNABLE TO BEAR WT/NOFALL TECHNIQUE: AP pelvis with lateral view(s) of the bilateral hip(s). COMPARISON: None. FINDINGS: Bones: No fractures or dislocations. Pelvic ring appears intact. No suspicious bony lesions. Mode rate to severe bilateral, left greater than right degenerative changes within the hip joints bilatera lly. Small paratracheal or osteophytes are present. Prominent degenerative changes within the lower l umbar spine are noted. There is narrowing of the sacroiliac joints bilaterally. Soft tissues: The visualized bowel gas pattern is normal. No suspicious soft tissue calcifications. Prominent vascular calcification present. IMPRESSION: Degenerative changes within the hips and spine as well as narrowing of the SI joints as above. Reviewed by: Ashley Dick MD on 12/16/2019 2:53 PM PDT Approved by: Ashley Dick MD on 12/16/2019 2:53 PM PDT Station ID: [id number]
== END 2019-12-16 13:14 | disposition home or self-care (01) ==
LOC: DI 13:13
PROVIDERS: ATTEND Physician Assistant
DX: M47.818 Spondylosis without myelopathy or radiculopathy, sacral and sacrococcygeal region (principal); M51.36 Other intervertebral disc degeneration, lumbar region; M48.061 Spinal stenosis, lumbar region without neurogenic claudication; M51.37 Other intervertebral disc degeneration, lumbosacral region; M48.07 Spinal stenosis, lumbosacral region; M16.0 Bilateral primary osteoarthritis of hip
CPT/HCPCS: 72100; 72202

== ENCOUNTER 2020-02-05 10:39 | Outpatient (CLI) | payer MEDICARE, BC ==
[2020-02-05 11:12] LABS: CREATININE 0.6 mg/dL (0.4-1.0)
[2020-02-05] MEDS ORDERED: IOVERSOL 320 100 ML VIAL IVP ONE ×2 (11:32→16:25)
--- NOTE | 2020-02-05 12:47 | CT Report ---
PROCEDURE: ANGIO HEAD W/WO INDICATIONS: CEREBRAL ANEURYSM CONTRAST: IV CONTRAST: Optiray 320 ml: 80 PO CONTRAST: *NO PO CONTRAST TECHNIQUE: Precontrast 4.5 mm thick angled axial sections acquired from the foramen magnum to the vertex. Afte r the administration of intravenous contrast, 1 mm thick sections acquired through the [place] of Will is. Postcontrast 4.5 mm thick sections then re-acquired from the foramen magnum to the vertex. 3-di mensional zkyehuq-ztcfimvnl-vcckyhxgyz (MIP) and/or volume rendering reformats were acquired of the c entral intracranial vasculature. For radiation dose reduction, the following was used: automated ex posure control, adjustment of mA and/or kV according to patient size. COMPARISON: Correlation is made with prior head CT examinations dated 10/01/2019, 04/25/2019, 07/10/19 19 FINDINGS: Image quality: Excellent. Anterior circulation: Intracranial internal carotid arteries demonstrate dense calcification and irr egularity. There is 70-80% narrowing seen on each side. The flow within the paired anterior cerebral arteries is normal and symmetric. The flow within the middle cerebral arteries is normal and symmetr ic. The anterior communicating artery is not well seen. No aneurysms are seen. Posterior circulation: Dense atherosclerotic calcification can be seen involving the V4 segments, wit h 80-90% narrowing on each side. There is a tortuous appearing basilar artery. Flow within the poste rior cerebral arteries is normal and symmetric. No aneurysms are seen. CSF spaces: Ventricles are normal in size and shape. Basal cisterns are patent. No extra-axial flu id collections. Brain: No midline shift. No intracranial bleeds or masses. Mercado-white matter interface appears int act. Calcification of the basal ganglia can be seen on both sides, which is considered to be within normal limits for age. Minimal appearing calcification can also be seen within the left. Midline sudha , which is less prominent on the current study than on the prior. Skull and face: Calvarium and facial bones appear intact, without suspicious lesions. Sinuses: Visualized sinuses and mastoids are clear. Bilateral cathryn bullosa are incidentally noted . IMPRESSION: An intracranial aneurysm is not identified. Dense calcification can be seen involving both the V4 segments, with 80-90% narrowing on each side. Dense atherosclerotic calcification and irregularity can be seen involving the intracranial internal carotid arteries, with 70-80% narrowing on each side. A small amount of apparent calcification can be seen within the central sudha. Reviewed by: Konrad Harris MD on 02/05/2020 11:46 AM [facility] [[email or web address]] Approved by: Konrad Harris MD on 02/05/2020 11:46 AM [facility] [[email or web address]] Station ID: [id number]
== END 2020-02-05 10:40 | disposition home or self-care (01) ==
LOC: DI 10:39
PROVIDERS: ATTEND Physician Assistant
DX: I67.1 Cerebral aneurysm, nonruptured (principal)
CPT/HCPCS: 36415; 70496; 82565; Q9967